=== PATIENT | male | born 1970 | race Caucasian/White ===

== ENCOUNTER 2018-02-02 11:37 | Emergency (ER) | payer OTHER ==
[~2018-02-02] VITALS: Ht 177.8 cm; Wt 88.5 kg
[2018-02-02 12:54] VITALS: BP 154/93
[2018-02-02] MEDS ORDERED: LIDOCAINE WITH 8.4% SOD BICARB 3 ML DISP.SYRIN. INJ ONE ×2 (13:15→13:30)
--- NOTE | 2018-02-02 13:15 | PHYS DOC ---
Past Medical History Past Medical History: No Pertinent History Past Surgical History: No Surgical History Alcohol Use: None Drug Use: None Adult General Chief Complaint Chief Complaint: LACERATION/AVULSION HPI HPI Patient is a 47 year old male who presents with laceration to his left forearm. 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 He denies numbness or tingling. He denies any other injury. Bleeding is controlled at this time. Unknown tetanus status. Review of Systems Review of Systems Constitutional: Denies fever or chills [] Musculoskeletal: Denies joint pain [] Integument: Laceration to the left forearm Neurologic: Denies focal weakness or sensory changes [] All other systems were reviewed and found to be within normal limits, except as documented in this note. Current Medications Current Medications Current Medications Medications (Trade) Dose Ordered Sig/James Start Time Stop Time Status Last Admin Dose Admin Lidocaine/Sodium Bicarbonate (Buffered Lidocaine 1%) 3 ml 1X ONCE 02/02/18 13:30 02/02/18 13:31 DC 02/02/18 13:25 3 ML Allergies Allergies Allergies Coded Allergies Type Severity Reaction Last Updated Verified No Known Drug Allergies 02/02/18 No Physical Exam Physical Exam Constitutional: Well developed, well nourished, no acute distress, non-toxic appearance. [] HENT: Normocephalic, atraumatic Eyes: PERRLA, EOMI, conjunctiva normal, no discharge. [] Neck: Normal range of motion, no tenderness, supple, no stridor. [] Skin: Warm, dry, 7 cm laceration to the left mid forearm, bleeding controlled Extremities: tenderness to palpation, ROM intact Neurologic: Alert and oriented X 3, normal motor function, normal sensory function, no focal deficits noted. [] Psychologic: Affect normal, judgement normal, mood normal. [] Current Patient Data Vital Signs Vital Signs Date Time Temp Pulse Resp B/P (MAP) Pulse Ox O2 Delivery O2 Flow Rate FiO2 02/02/18 12:54 97.9 72 12 154/93 (113) 98 Room Air 97.9 EKG EKG [] Radiology/Procedures Radiology/Procedures [] Course & Med Decision Making Course & Med Decision Making Pertinent Labs and Imaging studies reviewed. (See chart for details) [] Dragon Disclaimer Dragon Disclaimer This electronic medical record was generated, in whole or in part, using a voice recognition dictation system. Laceration/Wound Repair Laceration/Wound Repair : Wound Location: upper extremity (left mid forearm) Wound's Depth, Shape: linear Wound Length (cm): 7 Wound Explored: clean Betadine Prep?: No Anesthesia: 1% Lidocaine Volume Anesthetic (ccs): 6 Wound Repaired With: sutures Suture Size/Type: 4:0 Number of Sutures: 7 (3 horizontal mattress sutures, 4 interrupted) Layer Closure?: No Deep Layer Suture Size/Type: 4:0 Sterile Dressing Applied?: Yes Splint Applied?: No Sling Applied?: No Progress Patient tolerated without complaint Departure Departure Impression: Primary Impression: Forearm laceration Disposition: 01 HOME, SELF-CARE Condition: GOOD Referrals: NO PCP (PCP) Patient Instructions: Laceration Care, Adult Additional Instructions: Stitches out in 10 days Scripts Hydrocodone/Apap 5-325 (NORCO 5-325 TABLET) 1 Each Tablet 1 TAB PO PRN Q6HRS PRN for PAIN, #15 TAB 0 Refills Prov: OPAL ROMERO APRN 02/02/18 Problem Qualifiers Primary Impression: Forearm laceration Encounter type: initial encounter Laterality: left Qualified Codes: S51.812A - Laceration without foreign body of left forearm, initial encounter OPAL ROMERO APRN Feb 02, 2018 13:14
[2018-02-02] MEDS ORDERED: HYDR-971 PO (13:36)
== END 2018-02-02 13:46 | disposition home or self-care (01) ==
LOC: ER 11:37
DX: S51.812A Laceration without foreign body of left forearm, initial encounter (principal); Y28.8XXA Contact with other sharp object, undetermined intent, initial encounter; Y93.89 Activity, other specified; Y92.89 Other specified places as the place of occurrence of the external cause; Y99.8 Other external cause status
CPT/HCPCS: 12002; 99283-25